=== PATIENT | male | born 2000 ===

== ENCOUNTER 2020-12-13 16:29 | Emergency (ER) | payer BC, OTHER ==
[~2020-12-13] VITALS: Ht 177.8 cm; Wt 60.1 kg
[2020-12-13 16:34] VITALS: BP 135/80
== END 2020-12-13 18:03 | disposition home or self-care (01) ==
LOC: ED 17:57
DX: Z20.822 Contact with and (suspected) exposure to COVID-19 (principal); R94.31 Abnormal electrocardiogram [ECG] [EKG]
CPT/HCPCS: 93005; 99284; U0003; U0005